=== PATIENT | female | born 1990 | race Caucasian/White ===

== ENCOUNTER 2016-06-13 17:25 | Emergency (ER) | payer MEDICAID ==
[~2016-06-13] VITALS: Ht 160 cm; Wt 64.1 kg
[2016-06-13 17:34] VITALS: BP 102/70
== END 2016-06-13 18:46 | disposition home or self-care (01) ==
LOC: ED 18:40
DX: J00 Acute nasopharyngitis [common cold] (principal)
CPT/HCPCS: 71010; 99283

== ENCOUNTER 2017-12-07 20:52 | Emergency (ER) | payer MEDICAID ==
[~2017-12-07] VITALS: Ht 160 cm; Wt 135.0 kg
[2017-12-07 21:02] VITALS: BP 119/72
== END 2017-12-07 21:59 | disposition home or self-care (01) ==
LOC: ED 21:50
DX: S22.32XA Fracture of one rib, left side, initial encounter for closed fracture (principal); F31.9 Bipolar disorder, unspecified; F17.210 Nicotine dependence, cigarettes, uncomplicated; W01.10XA Fall on same level from slipping, tripping and stumbling with subsequent striking against unspecified object, initial encounter; Y93.89 Activity, other specified; Y92.009 Unspecified place in unspecified non-institutional (private) residence as the place of occurrence of the external cause; Y99.8 Other external cause status
CPT/HCPCS: 99284

== ENCOUNTER 2019-01-10 16:02 | Emergency (ER) | payer MEDICAID, OTHER ==
[~2019-01-10] VITALS: Ht 160 cm; Wt 66.9 kg
[2019-01-10 16:12] VITALS: BP 132/78
[2019-01-10 16:45] LABS: HCG UR SG 1.028 (1.003-1.030); MICROSCOPIC AUTO
--- NOTE | 2019-01-10 17:00 | NUR ---
director of leadership development: Pt ambulated independently to ED room 37 from [facility] at this time.
[2019-01-10 17:04] LABS: CULTURE INDICATED? YES
--- NOTE | 2019-01-10 17:09 | NUR ---
PT TO ROOM PLACED IN GOWN AND AWAITING ERP AND NEW ORDERS.
--- NOTE | 2019-01-10 18:07 | NUR ---
ERP TO BEDSIDE.
== END 2019-01-10 18:54 | disposition home or self-care (01) ==
LOC: ED 18:15
DX: M54.5 Low back pain (principal); R19.7 Diarrhea, unspecified; F31.9 Bipolar disorder, unspecified
CPT/HCPCS: 81001; 81025; 87086; 99283

== ENCOUNTER 2019-07-19 12:02 | Emergency (ER) | payer MEDICAID ==
[~2019-07-19] VITALS: Ht 160 cm; Wt 70.6 kg
[2019-07-19 12:22] VITALS: BP 114/71
--- NOTE | 2019-07-19 13:00 | NUR ---
ASSUMING CARE OF PT AT THIS TIME, PA ORDERS RECEIVED. AWAITING IMAGING AT THIS TIME
--- NOTE | 2019-07-19 13:10 | NUR ---
ICE PACK APPLIED TO RIGHT WRIST
--- NOTE | 2019-07-19 13:26 | NUR ---
TECH AT BEDSIDE TO APPLY SPLINT
[2019-07-19] MEDS ORDERED: HYDROcodone/APAP 5/325 TABLET PO ONE (14:00)
[2019-07-19] MEDS ORDERED: HYDROcodone/APAP 5/325 TABLET ONE (14:01)
--- NOTE | 2019-07-19 14:03 | NUR ---
PT C/O INCREASED PAIN, PA UPDATED. ORDERS RECEIVED FOR MEDS. PT MEDICATED PER APR. READY FOR DC
== END 2019-07-19 14:06 | disposition home or self-care (01) ==
LOC: ED 14:03
DX: G56.01 Carpal tunnel syndrome, right upper limb (principal); F17.200 Nicotine dependence, unspecified, uncomplicated
CPT/HCPCS: 99283

== ENCOUNTER 2019-09-13 09:37 | Day surgery (SDC) | payer MEDICAID ==
[~2019-09-13] VITALS: Ht 160 cm; Wt 64.0 kg
[~2019-09-13 09:37] MED LIST: BUPIVACAINE/PF 0.5% ONE; LIDOCAINE 1%, 20ML ONE
[2019-09-13] MEDS ORDERED: FENTANYL PF 100 MCG/2ML ONE (10:14)
[2019-09-13] MEDS ORDERED: MIDAZOLAM 1 MG/ML, 2ML ONE (10:14)
[2019-09-13 10:18] VITALS: BP 126/90
[2019-09-13] MEDS ORDERED: PROMETHAZINE 25 MG/ML, 1ML IVPush PRN (10:30)
[2019-09-13] MEDS ORDERED: MEPERIDINE/PF 25MG/0.5ML IVPush PRN (10:30)
[2019-09-13] MEDS ORDERED: FENTANYL PF 100 MCG/2ML IV PRN (10:30)
[2019-09-13] MEDS ORDERED: CHLORHEXIDINE 15 ML UDC MM ONE (10:30)
[2019-09-13] MEDS ORDERED: morphine SULFATE 10 MG/ML, 1ML IVPush PRN (10:30)
[2019-09-13] MEDS ORDERED: KETOROLAC 30 MG/1 ML IVPush PRN (10:30)
[2019-09-13] MEDS ORDERED: HYDROcodone/APAP 7.5-325MG/15ML UDC PO PRN (10:30)
[2019-09-13 10:59] LABS: AMPHETAMINE SCREEN, URINE Positive (Negative); BARBITURATE SCREEN, URINE Negative (Negative); BENZODIAZEPINE SCREEN, URINE Negative (Negative); CANNABINOID SCREEN, URINE Negative (Negative); COCAINE SCREEN, URINE Negative (Negative); METHADONE SCREEN, URINE Negative (Negative); OPIATE SCREEN, URINE Negative (Negative)
[2019-09-13] MEDS ORDERED: LACTATED RINGERS 1,000 ML IV SCH (11:00)
[2019-09-13 11:10] LABS: HCG UR SG 1.005 (1.003-1.030)
== END 2019-09-13 11:10 | disposition home or self-care (01) ==
LOC: OUT 09:37
PROVIDERS: ATTEND Orthopaedic Surgery
DX: G56.03 Carpal tunnel syndrome, bilateral upper limbs (principal); Z11.59 Encounter for screening for other viral diseases; Z53.8 Procedure and treatment not carried out for other reasons; Z79.899 Other long term (current) drug therapy
CPT/HCPCS: 36415; 80307; 81025; 87635; J2250; J3010

== ENCOUNTER 2020-01-28 08:54 | Emergency (ER) | payer MEDICAID ==
[~2020-01-28] VITALS: Ht 160 cm; Wt 68.7 kg
[2020-01-28 08:58] VITALS: BP 121/93
== END 2020-01-28 09:49 | disposition home or self-care (01) ==
LOC: ED 09:43
DX: K08.89 Other specified disorders of teeth and supporting structures (principal)
CPT/HCPCS: 99283